=== PATIENT | female | born 1990 | race Caucasian/White ===

== ENCOUNTER 2021-12-21 15:55 | Emergency (ER) | payer BC ==
[~2021-12-21] VITALS: Ht 149.9 cm; Wt 63.5 kg
[2021-12-21 16:06] VITALS: BP_SYST 137
--- NOTE | 2021-12-21 16:30 | NUR ---
Patient to ER bed 3 to gown for evaluation. Side rails up. Assumed care.
--- NOTE | 2021-12-21 16:32 | NUR ---
Pt. bib sister with c/o mid abd. pain and left flank pain X 5 days, rates it 6/10, has nausea no vomitting
--- NOTE | 2021-12-21 17:04 | NUR ---
ER at bedside examining patient.
[2021-12-21] MEDS ORDERED: DICYCLOMINE HCL 10 MG/5 ML SOLUTION PO ONE (17:15)
[2021-12-21] MEDS ORDERED: LIDOCAINE VISCOUS 2%, 15 ML UDC MM ONE (17:15)
[2021-12-21] MEDS ORDERED: MAG-AL HYDROX/SIMETH 30 ML UDC PO ONE (17:15)
[2021-12-21 17:28] LABS: BILIRUBIN,URINE NEGATIVE (NEGATIVE); BLOOD, URINE 3+ (NEGATIVE); CLARITY/URINE CLEAR (CLEAR); COLOR,URINE YELLOW (YELLOW); GLUCOSE,URINE NEGATIVE (NEGATIVE); KETONES,URINE NEGATIVE (NEGATIVE); LEUKOCYTE ESTERASE ,URINE NEGATIVE (NEGATIVE); NITRITE, URINE NEGATIVE (NEGATIVE); PROTEIN URINE NEGATIVE (NEGATIVE); UROBILINOGEN,URINE 0.2 (0.2-1.0)
[2021-12-21 17:45] LABS: RBC,URINE 0-3 /HPF (0-3); WBC,URINE 0-3 /HPF (0-3)
[2021-12-21 17:46] LABS: BACTERIA,URINE FEW /HPF (None Seen)
[2021-12-21 17:48] LABS: MUCUS,URINE 1+ /LPF (None Seen)
--- NOTE | 2021-12-21 17:49 | NUR ---
pt. has no abd. pain post GI cocktail, cont. to have 5/10 pain to left flank, denies need for pain med.
[2021-12-21 18:09] LABS: CALCIUM 9.7 mg/dL (8.4-11.0); CREATININE 0.62 mg/dL (0.55-1.30); POTASSIUM 3.8 mmol/L (3.5-5.1)
[2021-12-21 18:10] LABS: HEMATOCRIT 39.9 % (36-48); MEAN CORPUSCULAR HEMOGLOBIN 30 pg (27-31)
[2021-12-21 18:22] LABS: ALBUMIN 3.8 g/dL (3.4-4.8); TOTAL BILIRUBIN 0.2 mg/dL (0.0-1.0)
[2021-12-21 18:23] LABS: BASOPHILS # (AUTO) 0.1 K/uL (0.0-0.2); BASOPHILS % (AUTO) 0.8 % (0.0-2.0); EOSINOPHILS # (AUTO) 0.4 K/uL (0.0-0.4); EOSINOPHILS % (AUTO) 5.2 % (0.0-4.0); HEMOGLOBIN 13.5 g/dL (12.0-16.0); LYMPHOCYTES # (AUTO) 3.3 K/uL (1.0-5.5); MEAN CORPUSCULAR HGB CONC 34 % (32-36); MEAN CORPUSCULAR VOLUME 88 fL (79.0-98.0); MONOCYTES # (AUTO) 0.4 K/uL (0.0-1.0); MONOCYTES % (AUTO) 5.5 % (1.7-9.3); NEUTROPHILS # (AUTO) 3.5 K/uL (1.8-7.7); NEUTROPHILS % (AUTO) 45.5 % (40.0-70.0); PLATELET COUNT (AUTO) 321 K/uL (130-430); RED BLOOD CELL COUNT(AUTO) 4.54 MIL/uL (4.2-6.2); WHITE BLOOD COUNT (AUTO) 7.7 K/uL (4.8-10.8)
--- NOTE | 2021-12-21 19:22 | NUR ---
Pelvic exam performed by Dr. Hull with Gabrielle HERNADEZ at bedside for entire examination. Patient tolerated procedure well. Patient assisted to position of comfort after examination.
[2021-12-21] MEDS ORDERED: FAMO20TA8 PO (19:24)
--- NOTE | 2021-12-21 19:25 | NUR ---
report to [facility]
[2021-12-21 19:39] VITALS: BP_SYST 126
--- NOTE | 2021-12-21 19:42 | NUR ---
Pt D/C per MD's order DC instructions and prescriptions given to pt Pt verbalized understandings AOX4 VSS Able to make needs known Exited ED in stable gait
== END 2021-12-21 19:40 | disposition home or self-care (01) ==
LOC: SED 15:55
DX: R10.13 Epigastric pain (principal); R10.12 Left upper quadrant pain; Z79.899 Other long term (current) drug therapy; K21.9 Gastro-esophageal reflux disease without esophagitis
CPT/HCPCS: 36415; 80053; 81000; 81025; 83690; 84702; 85025; 99284; J2001